=== PATIENT | male | born 1965 | race Caucasian/White ===

== ENCOUNTER 2016-08-10 20:52 | Emergency (ER) | payer OTHER ==
[~2016-08-10] VITALS: Ht 182.9 cm; Wt 68.2 kg
[~2016-08-10 20:52] MED LIST: BENZ1TAB7 PO; DIVA-16 PO; HAL5 PO; HALO50AM4 IM; LACO200T2 PO; OLAN5TAB5 PO; PHEN100C PO
[2016-08-10 21:00] VITALS: Ht 182.9 cm; Wt 68.2 kg
[2016-08-10] MEDS ORDERED: LORAZEPAM 2 MG INJ IV STA (21:16)
[2016-08-10 21:29] LABS: ADD SCAN DIFF NO
[2016-08-10 21:33] LABS: BASOPHILS % 0.2 % (0.0-2.0); EOSINOPHILS # 0.1 10^3/ul (0.0-0.5); EOSINOPHILS % 0.4 % (0.0-7.0); HEMATOCRIT 44.4 % (42.0-52.0); LYMPHOCYTES # 2.8 10^3/ul (0.8-2.9); LYMPHOCYTES % 21.9 % (15.0-51.0); MEAN CORPUSCULAR VOLUME 88.8 fl (82.0-101.0); MEAN PLATELET VOLUME 8.8 fl (7.4-10.4); MONOCYTE # 1.1 10^3/ul (0.3-0.9); MONOCYTES % 8.7 % (0.0-11.0); NEUTROPHIL # 8.8 10^3/ul (1.6-7.5); NEUTROPHILS % 68.3 % (39.0-77.0); PLATELET COUNT 287 10^3/UL (140-415); RED CELL DISTRIBUTION WIDTH 11.9 % (11.5-14.5); WHITE BLOOD COUNT 12.9 10^3/ul (4.8-10.8)
[2016-08-10 21:40] LABS: CHLORIDE 101 mmol/L (97-110); SODIUM 140 mmol/L (135-144)
[2016-08-10 21:41] LABS: POTASSIUM 3.3 mmol/L (3.5-5.1)
[2016-08-10 21:43] LABS: CREATININE 1.01 mg/dl (0.61-1.24)
[2016-08-10 21:44] LABS: ANION GAP 22 (8-16); BLOOD UREA NITROGEN 18 mg/dl (7-20); CALCIUM 9.1 mg/dl (8.4-10.2); CARBON DIOXIDE 20 mmol/L (21-31); GLUCOSE 122 mg/dl (70-220)
[2016-08-10 21:49] LABS: VALPROATE 49 ug/ml (50-100)
[2016-08-10] MEDS ORDERED: POTASSIUM CHLORIDE (SR) 20 MEQ TAB PO ONE (22:01)
--- NOTE | 2016-08-10 22:13 | ERD ---
ER Documentation Chief Complaint Date/Time DATE: 08/10/16 TIME: 22:10 Chief Complaint BIB [facility] S/P SZ AT HOME , HX OF SZ HPI Patient is a 50-year-old male with schizophrenia and seizures who presents with a seizure. Please note the history and physical exam is limited secondary to the patient's recall of the event. The patient was brought in by ambulance. He had a seizure just prior to arrival. It stopped on its own. Upon review of old medical records this is the patient's fourth visit to the ER since 2007. He does not know the name of his primary doctor. He does not know what antiseizure medicine he takes. ROS All systems reviewed and are negative except as per history of present illness. Medications Home Meds Reported Medications Haloperidol* (Haldol*) 5 Mg Tab, 5 MG PO QHS, TAB 04/03/15 Phenytoin* Sodium Extended (Dilantin*) 100 Mg Capsule, 500 MG PO HS, CAP 04/03/15 Haloperidol Decanoate (Haldol Decanoate 50) 50 Mg/Ml Ampul, 50 MG IM EVERY 4 WEEKS 04/03/15 Benztropine Mesylate* (Benztropine Mesylate*) 1 Mg Tablet, 1 MG PO BID, TAB 04/03/15 Lacosamide (Vimpat) 200 Mg Tablet, 200 MG PO BID, TAB 04/03/15 Olanzapine* (Zyprexa*) 5 Mg Tablet, 5 MG PO QHS, TAB 04/03/15 Divalproex Sodium* (Divalproex Sodium*) 500 Mg Tablet.dr, 500 MG PO BID, #120 TAB 04/03/15 Allergies Allergies: Coded Allergies: No Known Allergy (Verified Allergy, Unknown, 11/13/07) PMhx/Soc Anesthesia Reaction: No Hx Neurological Disorder: Yes (SZ) Hx Respiratory Disorders: No Hx Cardiac Disorders: No Hx Psychiatric Problems: No Hx Miscellaneous Medical Probl: No Hx Alcohol Use: No Hx Substance Use: No Hx Tobacco Use: No Smoking Status: Never smoker FmHx Family History: No diabetes Physical Exam Vitals Vital Signs Date Time Temp Pulse Resp B/P Pulse Ox O2 Delivery O2 Flow Rate FiO2 08/10/16 21:00 98.6 118 23 135/80 95 Physical Exam Const: No acute distress Head: Atraumatic Eyes: Normal Conjunctiva ENT: Normal External Ears, Nose and Mouth. Neck: Full range of motion..~ No meningismus. Resp: Clear to auscultation bilaterally Cardio: Tachycardic rate without murmur Abd: Soft, non tender, non distended. Normal bowel sounds Skin: No petechiae or rashes Back: No midline or flank tenderness Ext: No cyanosis, or edema Neur: Awake and alert, no seizure activity at this time Psych: Normal Mood and Affect Result Diagram: 08/10/16209908/10/16 2100 Results 24 hrs Laboratory Tests Test 08/10/16 21:00 08/10/16 21:03 White Blood Count 12.910^3/ul Red Blood Count 5.0010^6/ul Hemoglobin 16.0g/dl Hematocrit 44.4% Mean Corpuscular Volume 88.8fl Mean Corpuscular Hemoglobin 32.0pg Mean Corpuscular Hemoglobin Concent 36.0g/dl Red Cell Distribution Width 11.9% Platelet Count 22511^3/UL Mean Platelet Volume 8.8fl Neutrophils % 68.3% Lymphocytes % 21.9% Monocytes % 8.7% Eosinophils % 0.4% Basophils % 0.2% Nucleated Red Blood Cells % 0.0/100WBC Neutrophils # 8.810^3/ul Lymphocytes # 2.810^3/ul Monocytes # 1.110^3/ul Eosinophils # 0.110^3/ul Basophils # 0.010^3/ul Nucleated Red Blood Cells # 0.010^3/ul Sodium Level 140mmol/L Potassium Level 3.3mmol/L Chloride Level 101mmol/L Carbon Dioxide Level 20mmol/L Anion Gap 22 Blood Urea Nitrogen 18mg/dl Creatinine 1.01mg/dl Glucose Level 122mg/dl Calcium Level 9.1mg/dl Phenytoin (Dilantin) Level < 3.0ug/ml Valproic Acid (Depakene) Level 49ug/ml Bedside Glucose 127mg/dL Current Medications Medications (Trade) Dose Ordered Sig/Alyssa Route PRN Reason Start Time Stop Time Status Last Admin Dose Admin Lorazepam (Ativan) 1 mg ONCE STAT IV 08/10/16 21:16 08/10/16 21:17 DC 08/10/16 21:20 Potassium Chloride (Klor-Con 20) 40 meq ONCE ONCE PO 08/10/16 22:01 08/10/16 22:02 DC Procedures/MDM Patient is a 50-year-old male presents with acute on chronic seizure. Patient was given Ativan to prevent further seizure. Laboratory studies showed a mild hypokalemia. The patient was given potassium by mouth. The patient does not need further workup or admission the hospital at this point. The patient's neurologic exam is normal at this time I do not believe patient requires a CT scan of the brain. I believe outpatient management is appropriate. The patient will need to follow-up with his primary doctor within 24-48 hours. He can return for any worsening symptoms. The patient does have a valproic acid level which is low and maybe he is supposed be taking valproic acid but is not taking as directed. Departure Diagnosis: Primary Impression: Hypokalemia Additional Impression: Seizure disorder Condition: Fair Patient Instructions: Seizure, Recurrent [Adult] Additional Instructions: Call your primary care doctor TOMORROW for an appointment during the next 1-2 days.See the doctor sooner or return here if your condition worsens before your appointment time. PRINCE BAILEY MD Aug 10, 2016 22:13
[2016-08-10 22:21] VITALS: BP 113/76; PULSE 88; RESP 16; TEMP 98.3
[2016-08-10] MEDS ORDERED: GINGKO BILOBA PO (22:30)
[2016-08-10] MEDS ORDERED: PYRI25TA13 PO (22:31)
== END 2016-08-10 22:30 | disposition home or self-care (01) ==
LOC: E/R 20:52
DX: E87.6 Hypokalemia (principal); G40.909 Epilepsy, unspecified, not intractable, without status epilepticus
CPT/HCPCS: 36415; 80048; 80164; 80185; 82962; 85025; 96374; J2060; Z7502; Z7610

== ENCOUNTER 2017-10-06 21:53 | Observation (INO) | END 2017-10-08 14:30 | disposition home or self-care (01) ==

== ENCOUNTER 2017-11-08 21:05 | Emergency (ER) | END 2017-11-09 00:50 | disposition home or self-care (01) ==

== ENCOUNTER 2018-07-14 03:18 | Emergency (ER) | payer OTHER ==
[~2018-07-14] VITALS: Wt 86.4 kg
[~2018-07-14 03:18] MED LIST changes: +ARIP5TAB14 PO; -HAL5 PO; -HALO50AM4 IM; -OLAN5TAB5 PO; +TRAZ-111 PO
[2018-07-14] MEDS ORDERED: SOD CHLORIDE 0.9% 1,000 ML IV STA (05:11)
[2018-07-14] MEDS ORDERED: PHENYTOIN 1,000 MG in SOD CHLORIDE 0.9% 80 ML IVPB STA (06:06)
[2018-07-14] MEDS ORDERED: LORAZEPAM 2 MG INJ IV STA (06:06)
[2018-07-14] MEDS ORDERED: ACETAMINOPHEN 500 MG TAB PO STA (06:06)
--- NOTE | 2018-07-14 08:22 | ERD ---
ER Documentation Chief Complaint Chief Complaint SCIZOFRENIC PT WITH SEIZURE DISORDER, FEELING SOB X'S 1 DAY HPI This is a 60-year-old male with a known history of schizophrenia and seizure disorder. The patient was brought into the emergency department by his mother after he had a witnessed tonic-clonic seizure just prior to arrival. Contrary to the triage note the patient has not been experiencing shortness of breath. The mother indicates that the patient was confused when giving the triage note as he is post ictal according to the mother. She states she believes he has been compliant with his antiepileptics which includes Dilantin. She indicated roughly 12 hours prior to arrival the patient also had a witnessed tonic-clonic seizure while lying down that lasted for 2 minutes. The patient had no fevers or shaking or chills. The patient is complaining of a unilateral pulsating right-sided headache that occurred after the seizure just prior to arrival. The mother indicated that the patient did lose urinary incontinence but did not bite his tongue. The patient had no suicidal homicidal thoughts or ideations. He denies any illicit drug use. He has no chest pain. He denies any abdominal pain. ROS All systems reviewed and are negative except as per history of present illness. Medications Home Meds Reported Medications Aripiprazole* (Abilify*) 5 Mg Tab, 5 MG PO DAILY, #30 TAB 10/06/17 Trazodone Hcl* (Trazodone Hcl*) 50 Mg Tablet, 50 MG PO QHS, #30 TAB TAKE 1 OR 2 TAB QHS 10/06/17 Phenytoin* Sodium Extended (Dilantin*) 100 Mg Capsule, 500 MG PO HS, CAP 10/06/17 Lacosamide (Vimpat) 200 Mg Tablet, 200 MG PO BID, TAB 10/06/17 Divalproex Sodium* (Divalproex Sodium*) 500 Mg Tablet.dr, 500 MG PO TID, #90 TAB 10/06/17 Benztropine Mesylate* (Benztropine Mesylate*) 1 Mg Tablet, 1 MG PO BID, TAB 10/06/17 Allergies Allergies: Coded Allergies: No Known Allergy (Verified , 10/06/17) PMhx/Soc History of Surgery: No Anesthesia Reaction: No Hx Neurological Disorder: Yes (SEIZURES) Hx Respiratory Disorders: No Hx Cardiac Disorders: No Hx Psychiatric Problems: No Hx Miscellaneous Medical Probl: Yes (SCHIZOPHRENIA ) Hx Alcohol Use: No (Denies alcohol use) Hx Substance Use: Yes (per ER report) Hx Tobacco Use: No Smoking Status: Never smoker Physical Exam Vitals Vital Signs Date Temp Pulse Resp B/P (MAP) Pulse Ox O2 O2 Flow FiO2 Time Delivery Rate 07/14/18 98.7 74 20 130/77 98 Room Air 05:15 (94) 07/14/18 98.7 98 20 130/77 98 03:33 (94) Physical Exam Constitutional:Well-developed. Well-nourished. HEENT:Normocephalic. Atraumatic with no nasal septal hematoma. No hemotympanum..Pupils were equal round reactive to light. Moist mucous membranes.No tonsillar exudates. Neck: No nuchal rigidity. No lymphadenopathy. No posterior cervical spine tenderness or step-offs. Respiratory: Not using accessory muscles of respiration.Lungs were clear to auscultation bilaterally. No rhonchi. No rales. No wheezing. Cardiovascular: Regular rate regular rhythm.No murmurs. No rubs were apprec iated.S1, S2 normal. Distal pulses are palpable 2+ bilaterally. GI: Abdomen was soft. Nontender. Non Distended. No pulsatile abdominal masses or bruits. No rebound. No guarding. Bowel sounds were present and normal. Muscle skeletal: Full range of motion of both the upper and lower extremities bilaterally.Normal muscle tone.No assymetrical calf tenderness or swelling. Skin: No petechia, no purpura. No lesions on the palms or the soles of the feet. No maculopapular rash. NEURO: Patient was alert, awake, orientated to person place but not to time.No facial droop. Gait observed and normal with no ataxia.Speech had regular rate and rhythm. No focal neurological deficits. Result Diagram: 07/14/1825 07/14/1825 Results 24 hrs Laboratory Tests Test 07/14/18 05:25 White Blood Count 8.9 10^3/ul Red Blood Count 5.26 10^6/ul Hemoglobin 16.2 g/dl Hematocrit 46.8 % Mean Corpuscular Volume 89.0 fl Mean Corpuscular Hemoglobin 30.8 pg Mean Corpuscular Hemoglobin Concent 34.6 g/dl Red Cell Distribution Width 11.7 % Platelet Count 230 10^3/UL Mean Platelet Volume 8.9 fl Immature Granulocytes % 0.300 % Neutrophils % 68.7 % Lymphocytes % 19.5 % Monocytes % 10.2 % Eosinophils % 1.0 % Basophils % 0.3 % Nucleated Red Blood Cells % 0.0 /100WBC Immature Granulocytes # 0.030 10^3/ul Neutrophils # 6.1 10^3/ul Lymphocytes # 1.7 10^3/ul Monocytes # 0.9 10^3/ul Eosinophils # 0.1 10^3/ul Basophils # 0.0 10^3/ul Nucleated Red Blood Cells # 0.0 10^3/ul Sodium Level 143 mmol/L Potassium Level 4.5 mmol/L Chloride Level 106 mmol/L Carbon Dioxide Level 27 mmol/L Anion Gap 10 Blood Urea Nitrogen 22 mg/dl Creatinine 1.19 mg/dl Est Glomerular Filtrat Rate mL/min > 60 mL/min Glucose Level 94 mg/dl Calcium Level 9.3 mg/dl Total Bilirubin 0.6 mg/dl Direct Bilirubin 0.00 mg/dl Indirect Bilirubin 0.6 mg/dl Aspartate Amino Transf (AST/SGOT) 53 IU/L Alanine Aminotransferase (ALT/SGPT) 51 IU/L Alkaline Phosphatase 73 IU/L Total Protein 8.2 g/dl Albumin 4.5 g/dl Globulin 3.70 g/dl Albumin/Globulin Ratio 1.21 Lipase 118 U/L Phenytoin (Dilantin) Level 18.0 ug/ml Ethyl Alcohol Level < 10.0 mg/dl Current Medications Medications Dose Sig/Alyssa Start Time Status Last (Trade) Ordered Route PRN Stop Time Admin Dose Reason Admin Sodium 1,000 ml @ Q1H STAT 07/14/18 DC 07/14/18 Chloride 1,000 mls/hr IV 05:11 05:55 07/14/18 06:10 1,000 mg ONCE STAT 07/14/18 DC 07/14/18 Acetaminophen PO 06:06 06:44 (Tylenol 07/14/18 06:10 Tab) Lorazepam 1 mg ONCE STAT 07/14/18 DC 07/14/18 (Ativan) IV 06:06 06:44 07/14/18 06:10 Phenytoin 100 ml @ ONCE STAT 07/14/18 DC 07/14/18 1000 mg/ 200 mls/hr IVPB 06:06 06:44 Sodium 07/14/18 06:35 Chloride Procedures/MDM This is a 52-year-old male that appeared to be postictal after having a wit nessed tonoclonic seizure. Patient was placed on a loss prevention guard continuous pulse oximetry and IV access was established by nursing staff. The patient was complaining of a unilateral headache and the mother stated she did not believe there is any head trauma however she was unaware of head trauma had occurred during the seizure activity as she stated she did not see the seizure activity just prior to arrival but heard the patient seizing in his bedroom. Therefore I did feel is necessary to obtain a CT scan the patient's head reviewed by myself the radiologist which showed no interval hemorrhage mass-effect or midline shift. The patient did receive IV Dilantin after Dilantin level was found to be normal. There is no severe electrolyte abnormalities or physical exam findings to suggest meningitis. The patient had returned to his baseline at the time of discharge which was 8:21 AM. The patient was discharged home in fair condition. They were instructed to return to the emergency department at any time if there was any worsening of their condition. The patient stated they would follow up with their PCP in the next 24-48 hours to initiate a suitable medication regimen under the care of their PCP as well as to allow their PCP to monitor any drug reactions. The patient was discharged home with prescriptions after they gave informed consent to the new medication. They were also fully informed by myself on the adverse effects and adverse drug interactions in order to provide adequate safeguards to prevent possible adverse reactions to medications. Departure Diagnosis: Primary Impression: Breakthrough seizure Condition: ABBY Mccallum MD Jul 14, 2018 08:22
[2018-07-14 09:40] VITALS: BP 110/72; PULSE 70; RESP 16
== END 2018-07-14 09:40 | disposition home or self-care (01) ==
LOC: E/R 03:18
DX: G40.909 Epilepsy, unspecified, not intractable, without status epilepticus (principal); R40.2142 Coma scale, eyes open, spontaneous, at arrival to emergency department; R40.2362 Coma scale, best motor response, obeys commands, at arrival to emergency department; R40.2252 Coma scale, best verbal response, oriented, at arrival to emergency department
CPT/HCPCS: 36415; 70450; 80053; 80185; 80307; 83690; 85025; 96361; 96365; 96375; J1165; J2060; J7030; Z7502; Z7610

== ENCOUNTER 2018-11-15 14:14 | Emergency (ER) | payer OTHER ==
[~2018-11-15] VITALS: Wt 68.2 kg
[~2018-11-15 14:14] MED LIST changes: +DIVA-75 PO
[2018-11-15] MEDS ORDERED: SOD CHLORIDE 0.9% 1,000 ML IV STA (14:36)
--- NOTE | 2018-11-15 14:50 | ERD ---
ER Documentation Chief Complaint Chief Complaint syncopal episode while standing in [facility]. no seizure but hit head. HPI This is a 53-year-old male with a history of behavioral disorder on Abilify as well as seizure disorder on Dilantin and Keppra. The patient indicated [place] extended period of time when he developed a sudden onset of dizziness. He had a brief transient loss of consciousness with loss of postural tone the last for roughly 30 seconds and complete spontaneous recovery. The patient does not remember passing out. He did hit his head and is complaining of a posterior headache. He has not experienced any emesis. He states he has had multiple similar episodes in the past. He has been compliant with his medications. He denies any chest pain. He has no short ness of breath. He denies any neck pain. There was no seizure-like activity during the syncope episode witnessed by bystanders. The patient was brought to the emergency department by EMS. ROS All systems reviewed and are negative except as per history of present illness. Medications Home Meds Reported Medications Aripiprazole* (Abilify*) 5 Mg Tab, 5 MG PO DAILY, #30 TAB 10/06/17 Trazodone Hcl* (Trazodone Hcl*) 50 Mg Tablet, 50 MG PO QHS, #30 TAB TAKE 1 OR 2 TAB QHS 10/06/17 Phenytoin* Sodium Extended (Dilantin*) 100 Mg Capsule, 500 MG PO HS, CAP 10/06/17 Lacosamide (Vimpat) 200 Mg Tablet, 200 MG PO BID, TAB 10/06/17 Divalproex Sodium* (Divalproex Sodium*) 500 Mg Tablet.dr, 500 MG PO TID, #90 TAB 10/06/17 Benztropine Mesylate* (Benztropine Mesylate*) 1 Mg Tablet, 1 MG PO BID, TAB 10/06/17 Allergies Allergies: Coded Allergies: No Known Allergy (Verified , 10/06/17) PMhx/Soc History of Surgery: No Anesthesia Reaction: No Hx Neurological Disorder: Yes (SEIZURES) Hx Respiratory Disorders: No Hx Cardiac Disorders: No Hx Psychiatric Problems: No Hx Miscellaneous Medical Probl: Yes (SCHIZOPHRENIA ) Hx Alcohol Use: No (Denies alcohol use) Hx Substance Use: Yes (per ER report) Hx Tobacco Use: No Physical Exam Vitals Vital Signs Date Temp Pulse Resp B/P (MAP) Pulse Ox O2 O2 Flow FiO2 Time Delivery Rate 11/15/18 98.1 98 18 114/73 99 14:27 (87) Physical Exam C constitutional:Well-developed. Well-nourished. HEENT:Normocephalic. Posterior scalp hematoma.Pupils were equal round reactive to light. Moist mucous membranes.No tonsillar exudates. Neck: No nuchal rigidity. No lymphadenopathy. No posterior cervical spine tenderness or step-offs. Respiratory: Not using accessory muscles of respiration.Lungs were clear to auscultation bilaterally. No rhonchi. No rales. No wheezing. Cardiovascular: Regular rate regular rhythm.No murmurs. No rubs were appreciated.S1, S2 normal. Distal pulses are palpable 2+ bilaterally. GI: Abdomen was soft. Nontender. Non Distended. No pulsatile abdominal masses or bruits. No rebound. No guarding. Bowel sounds were present and normal. Muscle skeletal: Full range of motion of both the upper and lower extremities bilaterally.Normal muscle tone.No assymetrical calf tenderness or swelling. Skin: No petechia, no purpura. No lesions on the palms or the soles of the feet. No maculopapular rash. NEURO: Patient was alert, awake, orientated x3.No facial droop. Gait observed and normal with no ataxia.Speech had regular rate and rhythm. No focal neurological deficits. PSYCH: Patient denied any suicidal homicidal thoughts or ideations. Tardive dyskinesia was present with oral fixations. Results 24 hrs Current Medications Medications Dose Sig/Alyssa Start Time Status Last (Trade) Ordered Route PRN Stop Time Admin Dose Reason Admin Sodium 1,000 ml @ Q1H STAT 11/15/18 Chloride 1,000 mls/hr IV 14:36 11/15/18 15:35 Procedures/MDM The patient presented to the emergency department with a transient loss of consciousness with loss of postural tone, suggestive of a syncope episode. The differential diagnosis of syncope is vast but my workup considered common benign disorders to life-threatening processes. Therefore my differential diagnosis included but was not limited to reflex-mediated syncope such as vasovagal or carotid sinus syncope from coughing, sneezing, micturition, or GI stimulation (eg, defecation). Other etiologies in my workup included orthostatic hypotension which could cause syncope from an abrupt drop in venous return to heart from volume depletion. An EKG and cardiac enzymes were obtained to rule out cardiac arrhythmias or ischemia. Cardiopulmonary disease such as valvular disease, hypertrophic cardiomyopathy, pericardial tamponade, or pulmonary embolism were considered as a factor causing the patients syncope episode. The patient had no difference in blood pressure in both arms that could suggest aortic dissection or subclavian steal syndrome. Rectal exam was negative for fecal occult blood that could suggest GI bleeding. Ancillary laboratory work was obtained to evaluate for metabolic or electrolyte abnormalities. The patient had no witnessed brief tonic movements that could suggest postictal confusion. The patient was placed on a door opener, continuous pulse oximetry and IV access established by nursing staff. The patient is given a liter bolus of normal saline. I obtained a 12-lead EKG tracing to rule for atypical myocardial infarction. 12 Lead EKG tracing ordered and reviewed by myself showed: Normal sinus rhythm of 91 bpm and no arrhythmia. VA interval normal. QRS duration normal. No ST segment elevation No ST segment depression. No changes consistent with acute ischemia. The patient did have blunt head trauma as he had fallen onto a hard tiled surface of the [employer]. CT scan of the patient's head was obtained and reviewed by myself the radiologist and showed no intracerebral hemorrhage mass- effect or midline shift no skull fracture. I do feel symptoms are likely result of a vasovagal episode. He had no severe electrolyte abnormalities. The patient was discharged home in fair condition. They were instructed to return to the emergency department at any time if there was any worsening of their condition. The patient stated they would follow up with their PCP in the next 24-48 hours to initiate a suitable medication regimen under the care of their PCP as well as to allow their PCP to monitor any drug reactions. The patient was discharged home with prescriptions after they gave informed consent to the new medication. They were also fully informed by myself on the adverse effects and adverse drug interactions in order to provide adequate safeguards to prevent possible adverse reactions to medications. Departure Diagnosis: Primary Impression: Vasovagal syncope Additional Impression: Scalp hematoma Encounter type: initial encounter Qualified Codes: S00.03XA - Contusion of scalp, initial encounter Condition: Fair ABBY DERAS MD Nov 15, 2018 14:50
[2018-11-15 16:00] VITALS: BP 124/87; PULSE 86; RESP 18
== END 2018-11-15 17:22 | disposition home or self-care (01) ==
LOC: E/R 14:14
DX: R55 Syncope and collapse (principal); S00.03XA Contusion of scalp, initial encounter; X58.XXXA Exposure to other specified factors, initial encounter; Y92.240 Courthouse as the place of occurrence of the external cause; Z87.891 Personal history of nicotine dependence
CPT/HCPCS: 70450; 80053; 80307; 84484; 85025; 85610; 85730; 93005; J7030; Z7502